=== PATIENT | male | born 1940 | race Caucasian/White ===

== ENCOUNTER 2016-05-18 13:46 | Emergency (ER) | payer MEDICARE ==
[~2016-05-18] VITALS: Ht 172.7 cm; Wt 84.1 kg
[~2016-05-18 13:46] MED LIST: ALPR0.5T8 PO; ASPI-13 PO; BUTA1CAP39 PO; CHOL2000 PO; CLOP75TA3 PO; FLUO20CA25 PO; GABA-500 PO; LISI-567 PO; MAGN200T PO; METF500T4 PO; METO50TA3 PO; NITR0.4T6 SL; NORT10CA PO; NPH10OT1A OT; SIMV20TA4 PO; TAMS0.4C29 PO; THIO50TA PO; [UNRECOGNIZED DRUG - CODE] MC; [UNRECOGNIZED DRUG - CODE] PO
[2016-05-18 13:53] VITALS: BP 139/84; PULSE 61; RESP 20; O2SAT 97
--- NOTE | 2016-05-18 14:38 | DRSVH ---
PROCEDURE: CT BRAIN WITHOUT CONTRAST ([id number]) INDICATIONS: DIZZINESS, RESOLVED TECHNIQUE: Noncontrast 4.5 mm thick angled axial sections acquired from the foramen magnum to the vertex, with c oronal reformats. COMPARISON: [facility], MR, BRAIN W&W/O CONTRAST, 05/30/2012, 11:30. FINDINGS: Image quality: Excellent. CSF spaces: Basal cisterns are patent. No extra-axial fluid collections. The ventricles are symmet larissa in size and shape. Brain: No intracranial bleeds or masses. There is cerebral volume loss for age, with resultant vent ricular and sulcal prominence. There are periventricular and deep white matter chronic small vessel ischemic changes. There is intracranial internal carotid artery atherosclerosis. Skull and face: Calvarium and visualized facial bones appear intact, without suspicious lesions. Sinuses: Visualized sinuses and mastoids are clear. IMPRESSION: No acute intracranial abnormality. Dictated by: Nicole Washington M.D. on 05/18/2016 at 14:36 Approved by: Nicole Washington M.D. on 05/18/2016 at 14:36
--- NOTE | 2016-05-18 15:29 | ED.REPORT ---
HPI-Stroke / CVA May 18, 2016 ED Provider: Julio Alan MD Patient is a 75 year old male on Plavix who presents to the ED after being referred by PCP for a possible stroke. He got up at 0800 this morning and could not walk without veering to the left for about 5 minutes. After 5 minutes, he was experiencing dizziness and lightheadedness any time he bent over and stood back up. When he had a BM he felt like he was going to pass out. Patient's symptoms were resolved by 1200. He denies blurred vision, slurred speech, weakness, numbness, confusion, or any other symptoms. Patient's is concerned about a blood clot because he slipped and fell on ice 9 days ago but did not start to form a bruise until 4-5 days ago. Nursing Notes Stated Complaint: POSS STROKE Chief Complaint: Neuro Symptoms/ Deficits Nursing Notes Reviewed: Yes Allergies: Coded Allergies: No Known Allergies (Unverified Allergy, Unknown, 12/01/13) Scheduled Aspirin/Calcium Carbonate/Mag (Aspirin Buffered) 325 Mg Tablet 81 MG PO DAILY ( Reported) Cholecalciferol (Vitamin D3) (Vitamin D) 2,000 Unit Capsule 2,000 UNIT PO DAILY (Reported) Clopidogrel Bisulfate (Plavix) 75 Mg Tablet 75 MG PO DAILY (Reported) Fluoxetine (Fluoxetine) 20 Mg Capsule 40 MG PO DAILY (Reported) Gabapentin (Gabapentin) 100 Mg Capsule 200 MG PO PM (Reported) Gabapentin (Gabapentin) 100 Mg Capsule 100 MG PO AM (Reported) Lisinopril (Lisinopril) 20 Mg Tablet 10 MG PO DAILY (Reported) Magnesium (Magnesium) 200 Mg Tablet 200 MG PO HS (Reported) Metformin (Metformin) 500 Mg Tablet 500 MG PO BIDWM (Reported) Metoprolol Tartrate (Metoprolol Tartrate) 50 Mg Tablet 12.5 TAB PO BID (Reported ) Neomycin/Polymyxin B Sulf/Hc (Gohsbzjj-Grsixgnkb-Zm Ear Susp) 10 Ml Drops.susp 10 ML OT QID (Reported) Nortriptyline (Nortriptyline) 10 Mg Capsule 20 MG PO HS (Reported) Ranitidine HCl ([employer] 75) 75 Mg Tablet 75 MG PO DAILY (Reported) Simvastatin (Simvastatin) 20 Mg Tablet 20 MG PO HS (Reported) Tamsulosin ER (Tamsulosin ER) 0.4 Mg Cap.er.24h 0.4 MG PO HS (Reported) Scheduled PRN Alprazolam (Alprazolam) 0.5 Mg Tablet 0.5 MG PO TID PRN PRN For Anxiety ( Reported) Butalbital/Acetamin/Caff 50-300-40 mg (Fioricet 50-300-40 mg) 1 Each Capsule 1 EACH PO Q4 PRN PRN For Headache (Reported) Miscellaneous Medications Alpha Lipoic Acid (Alpha Lipoic Acid) 50 Mg Tablet 50 MG PO (Reported) Blood Sugar Diagnostic (One Touch Ultra Test Strips) 1 Each Strip 1 EACH ( Reported) Continue to monitor blood sugar Nitroglycerin SL (Nitroglycerin SL) 0.4 Mg Tab.subl 0.4 MG SL (Reported) General Time Seen by Provider: 15:27 Chief Complaint Lost coordination Hx Obtained From: Patient, Spouse Arrived By: Walk-in Time last known well 0800 Sudden in Onset?: Yes Progression Since Onset: Resolved Recent Healthcare: Recent doctor visit Similar Sx Previous: Yes Risk Factors NIH Stroke Scale Level of Consciousness: Alert and responsive (0) Ask Month & Age: Both questions right (0) Open/Close Eyes/Hand Pattern Weaver: Performs both tasks (0) Horizontal EO Movements: None (0) Visual Roberson: No visual loss (0) Facial Palsy: Normal symmetry (0) Right Arm Motor Drift (10s): No drift 10 sec (0) Left Arm Motor Drift (10s): No drift 10 sec (0) Right Leg Motor Drift (5s): No drift 5 sec (0) Left Leg Motor Drift (5s): No drift 5 sec (0) Limb Ataxia FNF/Heel-Watkins: No ataxia (0) Sensation (Arms/Legs/Face): No sensory loss (0) Language Aphasia: No aphasia, normal (0) Dysarthria: No dysarthria, normal (0) NIHSS Score: 0 Time NIHSS Performed: 15:33 Date NIHSS Performed: May 18, 2016 )( CVA Risk Stratification Age >60 Hypertension Prior CVA/TIANo Hyperlipidemia, No Smoking Risk factors reviewed Past Medical History Past Medical History Tension migraines OR x3 Neuropathy Reports: Congestive heart failure, Diabetes mellitus, Hypertension, Transient ischemic attack Past Surgical History Heart cath with stent Partial gastric resection back x2 Reports: Cholecystectomy, Tonsillectomy Smoking History Unknown if Ever Smoker Social History Other Social History: Good social support, Ambulatory Status Independent Review of Systems Eyes: Denies: Blurred bilateral Neurologic: Reports: Dizziness, Lightheaded, Problem walking, Denies: Numbness, Slurred speech, Weakness Psychiatric: Denies: Confusion Complete sys rev & neg: except as marked. Physical Exam Initial Vital Signs Vital Signs (First) Date Time Temp Pulse Resp B/P Pulse Ox O2 Delivery O2 Flow Rate FiO2 05/18/16 13:53 37 61 20 139/84 97 Room Air Initial VS: Reviewed Extremities: No swelling Psychiatric: Mood/affect normal, Behavior normal, Normal thought content General/Constitutional: Awake, Alert, Well appearing, Well developed Head / Eyes: Atraumatic, Normocephalic, PERRL Neck: Atraumatic, Full range of motion Respiratory / Chest: No respiratory distress Cardiovascular: Peripheral circulation NL Neurologic: Oriented X3, Speech NL See stroke scale Skin: Warm, Dry 12x3 cm bruise on left outer thigh Interpretation & Diagnostics US ANGIO LLE: No blood clot Results discussed with US tech. Lab Results Interpretation Result Diagram: 05/18/16 1527 05/18/16 1527 Test 05/18/16 15:27 White Blood Count 5.8th/mm3 (3.8-10.1) Red Blood Count 4.72mil/mm3 (4.40-5.80) Hemoglobin 14.2g/dL (13.8-17.2) Hematocrit 43.2% (41.0-50.0) Mean Corpuscular Volume 91.5fL (81-100) Mean Corpuscular Hemoglobin 30.1pg (27.0-35.0) Mean Corpuscular Hemoglobin Concent 32.9% (32.0-37.0) Red Cell Distribution Width 13.2% (12.3-15.4) Platelet Count 262bil/L (150-400) Neutrophils (%) (Auto) 60.5% (40-74) Lymphocytes (%) (Auto) 25.9% (14-46) Monocytes (%) (Auto) 8.1% (4-12) Eosinophils (%) (Auto) 4.3% (0-5) Basophils (%) (Auto) 0.5% (0-3) Prothrombin Time 10.2sec (8.1-12.5) Prothromb Time International Ratio 0.95ratio Activated Partial Thromboplast Time 25.8sec (22.8-33.0) Sodium Level 144mEq/L (134-144) Potassium Level 4.7mEq/L (3.5-5.2) Chloride Level 104mEq/L (97-108) Carbon Dioxide Level 27mmol/L (18-29) Blood Urea Nitrogen 23mg/dL (8-27) Creatinine 1.13mg/dL (0.76-1.27) Estimat Glomerular Filtration Rate 68mL/min (>59) Glucose Level 94mg/dL (60-99) Calcium Level 8.7mg/dL (8.5-10.1) Total Bilirubin 0.2mg/dL (0.0-1.2) Aspartate Amino Transf (AST/SGOT) 21U/L (0-50) Alanine Aminotransferase (ALT/SGPT) 23U/L (0-44) Alkaline Phosphatase 120U/L (25-160) Troponin T < 0.010ug/L (0.0-0.011) Total Protein 6.6g/dL (6.4-8.4) Albumin 4.1g/dL (3.4-5.0) CT Head Interpretation BRAIN CT: IMPRESSION: No acute intracranial abnormality. Dictated by: Nicole Washington M.D. on 05/18/2016 at 14:36 Approved by: Nicole Washington M.D. 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 Resolved prior to arrival. History of similar in the past has never sought medical attention for this. His NIH stroke scale is 0. His neurological exam is completely normal. His CAT scan is normal. His vital signs are stable. Labs unremarkable. He did have a fall left lower extremity and some bruising over the left buttocks. Ultrasound showed no left lower extremity DVT. Patient likely with TIA. I recommended admission for stroke workup. Patient requested to go home and follow-up with his primary doctor tomorrow. He will return if he has any new stroke symptoms or any other new or worsening symptoms. Re-Evaluation/Progress : Time of Eval: 16:40 )( Re-Eval Neurologic Exam: Alert, Oriented X3 Re-Evaluation/Progress Note: Patient is offered admission but requesting to go home. Patient understands the risks of going home. Discussed plan for discharge. Patient understands and agrees with plan. All questions addressed at this time. Counseled Regarding: Diagnosis, Lab results, Need for follow-up, When/why to return to ED Patient Discharge & Departure Impression: Primary Impression: TIA (transient ischemic attack) Transient cerebral ischemia type: unspecified Qualified Code: G45.9 - Transient cerebral ischemic attack, unspecified Disposition: Home Discharge Condition All VS Reviewed: Yes Condition: Stable Additional Instructions: Thank you for entrusting us with your care today. Your lab and imaging results are reassuring. Please follow up with your primary care provider in the next few days. Return to the emergency department if your symptoms return. Referrals: Jason Gooden MD (PCP) Scribe Attestation Portions of this note were transcribed by Fabian Cotter. I, Dr. Alan personally performed the history, physical exam and medical decision-making; I reviewed and confirmed the accuracy of the information in the transcribed note. Signed by: Fabian Cotter 05/18/16, 1641 copies to: Jason Gooden MD, Ben M MD May 18, 2016 15:29 FABIAN COTTER May 18, 2016 15:53
[2016-05-18 15:37] LABS: BASOPHILS % (AUTO) 0.5 % (0-3); EOSINOPHILS % (AUTO) 4.3 % (0-5); MONOCYTES % (AUTO) 8.1 % (4-12); Mean Corpuscular Hemoglobin 30.1 pg (27.0-35.0); Mean Corpuscular Volume 91.5 fL (81-100); NEUTROPHILS % (AUTO) 60.5 % (40-74); Platelet Count 262 bil/L (150-400)
[2016-05-18 16:00] LABS: INR 0.95 ratio
[2016-05-18 16:27] LABS: TROPONIN T < 0.010 ug/L (0.0-0.011)
--- NOTE | 2016-05-18 16:45 | DRSVH ---
PROCEDURE: US VEINOUS LEG DUPLEX UNILATERAL, LEFT INDICATIONS: LLE swelling bruising r/o dvt TECHNIQUE: Real-time imaging, as well as color and pulse Doppler interrogation, were performed of the lower extr emity deep veins from the inguinal ligament to the popliteal fossa. COMPARISON: None. FINDINGS: The deep veins are normally compressible, and free of intraluminal thrombus. Color and pu lse Doppler demonstrate normal phasic intraluminal flow. There is normal augmentation response to di stal compression maneuver. By 0.7 x 1.0 x 4.1 cm complex subcutaneous fluid collection. IMPRESSION: 1. No left leg deep venous thrombosis. 2. Complex fluid collection within the soft tissues of the left groin which may be related to hematom a secondary to traumatic history. Correlate clinically. Dictated by: Anival HARDING Interpreted: Nargis Nguyen MD on 05/18/2016 at 16:45 Transcribed by: YANICK on 05/18/2016 at 16:45 Approved by: Nargis Nguyen M.D. on 05/19/2016 at 11:45
[2016-05-18 17:04] VITALS: BP 131/80; PULSE 67; RESP 16; O2SAT 96
== END 2016-05-18 17:25 | disposition home or self-care (01) ==
LOC: SED 13:46
DX: G45.9 Transient cerebral ischemic attack, unspecified (principal); S70.12XA Contusion of left thigh, initial encounter; W00.0XXA Fall on same level due to ice and snow, initial encounter; Y93.01 Activity, walking, marching and hiking; Y99.8 Other external cause status; Y92.9 Unspecified place or not applicable; I50.9 Heart failure, unspecified; I25.2 Old myocardial infarction; E11.9 Type 2 diabetes mellitus without complications; I10 Essential (primary) hypertension; Z79.82 Long term (current) use of aspirin; Z79.84 Long term (current) use of oral hypoglycemic drugs; Z86.79 Personal history of other diseases of the circulatory system; Z79.01 Long term (current) use of anticoagulants